=== PATIENT | male | born 1990 | race African-American/Black ===

== ENCOUNTER 2016-06-26 17:29 | Emergency (ER) | payer OTHER ==
[2016-06-26] MEDS ORDERED: Ibuprofen 800 MG TAB ONE (17:44)
--- NOTE | 2016-06-26 18:16 | RAD ---
CHEST PA AND LATERAL: History: 25-year-old male with cough. FINDINGS: Heart size is normal. The lungs are clear. IMPRESSION: No acute intrathoracic disease. No evidence for pneumonia. POS: [facility]
== END 2016-06-26 19:00 | disposition home or self-care (01) ==
LOC: NAV ERS 17:29
DX: J06.9 Acute upper respiratory infection, unspecified (principal); F31.9 Bipolar disorder, unspecified; F20.9 Schizophrenia, unspecified; F17.210 Nicotine dependence, cigarettes, uncomplicated
CPT/HCPCS: 71020; 87081; 87430; 96360

== ENCOUNTER 2020-05-13 19:05 | Emergency (ER) | payer OTHER ==
[2020-05-14 15:53] LABS: SARS-CoV-2 PCR by NAA Not Detected (NotDetected)
== END 2020-05-13 19:50 | disposition home or self-care (01) ==
LOC: NAV ERS 19:05
DX: J06.9 Acute upper respiratory infection, unspecified (principal); Z20.822 Contact with and (suspected) exposure to COVID-19; F17.210 Nicotine dependence, cigarettes, uncomplicated
CPT/HCPCS: 87635; 99283; U0003; U0005